=== PATIENT | female | born 1995 | race African-American/Black ===

== ENCOUNTER 2017-06-09 21:51 | Emergency (ER) | payer MEDICAID, OTHER ==
[~2017-06-09 21:51] MED LIST: FERRTAB2 PO; PREN1CAP7 PO
--- NOTE | 2017-06-09 22:37 | PD ---
HPI Chief Complaint ctx q20m (stopped on arrival) Date Seen: Jun 09, 2017 Time Seen: 22:33 Travel History International Travel<30 Days: No Contact w/Intl Traveler<30Days: No Known Affected Area: No History of Present Illness HPI 21y/o @ 36.0wks. She has [facility]. Presented for ctx q20m but states that they stopped when she arrived to triage. +FM. No LOF or VB. is c/b anemia and short interval. Weeks Gestation: 36 Para: 1 : 2 History Past Medical History Medical History: Denies Significant Hx Obstetric History Obstetric History 1. , 6lbs 13oz 2. current Past Surgical History Surgical History: No Previous Surgery Family History Family History: Negative Social History Alcohol Use: No Tobacco Use: No Substance Abuse: No Allergies-Medications (Allergen,Severity, Reaction): Coded Allergies: No Known Allergies (Unverified , 02/19/17) Home Meds Active Scripts Multi-Vit/Iron-Folic Amea-S90-Cxf C (Ferralet) 90-1-0.012-120 mg Tab, 1 CAPLET PO DAILY for 30 Days, #30 CAPLET 3 Refills Prov:Yolis Thao CNM [facility] 02/25/17 W/O Vit A W/ Fe Fumar (Citranatal [place]re) 27-1-260 Mg Cap, 1 CAP PO DAILY for Nutritional Supplement, #30 CAP 4 Refills Prov:Yolis Thao CNM [facility] 02/19/17 Review of Systems Except as stated in HPI: all other systems reviewed are Neg Physical Exam Narrative General: well developed, well nourished, no acute distress HEENT: normocephalic atraumatic, extraocular movements intact, neck supple Abdomen: soft, gravid, nontender, nondistended Uterus: fundus soft Extremities: full range of motion Skin: normal coloration, no rashes, no suspicious skin lesions noted Neurologic: cranial nerves 2-12 grossly intact, normal muscle tone, normal gait Psychiatric: normal mood and affect, appropriate FHTs: 135, +accels, no decels, moderate variability, reactive Owen: single contraction seen Cvx: /-3 Data Data Vital Signs Reviewed: Yes Orders Orders Vital Signs (Adult) .ON ADMISSION (06/09/17 22:33) ^ Labor Status (06/09/17 22:33) ^ Non Stress Test (06/09/17 22:33) Ed Discharge Order (06/09/17 22:33) MDM Plan 21y/o @ 36.0wks with ctx. -- toco with single ctx -- cvx 1cm -- FHTs cat 1 Dispo: stable for d/c home with precautions, f/u this week for PNC Diagnosis Diagnosis: Primary Impression: 36 weeks gestation of Additional Impressions: Uterine contractions during Short interval between pregnancies affecting , antepartum Anemia Mary Perez MD Jun 09, 2017 22:37
== END 2017-06-09 22:45 | disposition home or self-care (01) ==
LOC: HOBED 21:51
DX: O60.03 Preterm labor without delivery, third trimester (principal); O99.013 Anemia complicating pregnancy, third trimester; D64.9 Anemia, unspecified; Z3A.36 36 weeks gestation of pregnancy
CPT/HCPCS: 99283